=== PATIENT | female | born 1930 | race Caucasian/White ===

== ENCOUNTER 2019-02-03 03:13 | Inpatient (IN) | payer OTHER, MEDICAID ==
[~2019-02-03] VITALS: Ht 142.2 cm; Wt 66.7 kg
[2019-02-03 03:15] VITALS: BP 165/65
[2019-02-03] MEDS ORDERED: FEVERALL650 M1 RECTAL (03:30)
[2019-02-03] MEDS ORDERED: MILK OF MA400 MG/5 M PO (03:30)
[2019-02-03] MEDS ORDERED: ASPIRIN81 M2 PO (03:31)
[2019-02-03] MEDS ORDERED: ALENDRONATE SOD70 MG PO (03:31)
[2019-02-03] MEDS ORDERED: LIPITOR40 MG PO (03:31)
[2019-02-03] MEDS ORDERED: ARICEPT 5 MG TAB5 MG PO (03:32)
[2019-02-03] MEDS ORDERED: ERGOCALCIF50000 UNIT PO (03:32)
[2019-02-03] MEDS ORDERED: COLACE100 MG PO (03:32)
[2019-02-03] MEDS ORDERED: LORAZEPAM 22 MG/1 ML IV PUSH (03:33)
[2019-02-03 03:34] LABS: BE 1.3 mmol/L (-2 to +3); PCO2 46.3 mmHg (35.0-45.0); PO2 110.9 mmHg (75.0-100.0)
[2019-02-03] MEDS ORDERED: LORAZEPAM 22 MG/1 ML PO (03:34)
[2019-02-03] MEDS ORDERED: TOPROL XL25 MG PO (03:34)
[2019-02-03] MEDS ORDERED: XARELTO20 MG PO (03:35)
[2019-02-03] MEDS ORDERED: REMERON15 MG PO (03:35)
[2019-02-03] MEDS ORDERED: TIMOLOL MA0.25 %/52 OPHTHALMIC (03:37)
[2019-02-03] MEDS ORDERED: TRAVATAN Z2.5 ML OPHTHALMIC (03:38)
[2019-02-03] MEDS ORDERED: TYLENOL WITH CO1 TA1 PO (03:41)
[2019-02-03] MEDS ORDERED: IPRAT-ALBUT 0.5-3 ML INH (03:43)
[2019-02-03 03:50] LABS: ABSOLUTE LYMPHOCYTES 0.8 thou/uL (0.8-5.3); ABSOLUTE MONOCYTES 0.5 thou/uL (0.0-1.2); ABSOLUTE NEUTROPHILS 7.2 thou/uL (1.6-8.1); BASOPHILS 0.2 %; EOSINOPHILS 0.3 %; HEMOGLOBIN 10.1 gm/dL (12.0-15.0); LYMPHOCYTES 9.4 %; MCH 30.2 pg (26.0-34.0); MCHC 32.7 g/dL (28.0-37.0); MCV 92.5 fL (80.0-100.0); MONOCYTES 5.7 %; NUCLEATED RBCS 0 /100WBC; PLATELET COUNT* 422 thou/uL (150-400); POLYS 84.4 %; RBC 3.35 mil/uL (4.20-5.00); WBC 8.6 thou/uL (4.0-11.0)
[2019-02-03 04:01] LABS: ANION GAP 6 mmol/L (7-16); BUN 15 mg/dL (7-18); CALCIUM 8.6 mg/dL (8.5-10.1); CHLORIDE 103 mmol/L (98-107); CO2 31 mmol/L (21-32); GLUCOSE 130 mg/dL (70-99); POTASSIUM 4.1 mmol/L (3.5-5.1); SODIUM 140 mmol/L (136-145)
[2019-02-03 04:06] LABS: APTT 32.9 Seconds (25.0-31.3); INR 1.5; PROTIME 15.4 Seconds (9.20-11.50)
[2019-02-03 04:14] LABS: ALBUMIN 3.1 g/dL (3.4-5.0); ALKALINE PHOSPHATASE 185 U/L (46-116); NT-PRO BRAIN NAT PEPTIDE 7484 pg/mL (<300); SGOT 19 U/L (15-37); SGPT 19 U/L (30-65); TOTAL BILIRUBIN 0.8 mg/dL (<0.1-1.0); TOTAL PROTEIN 6.2 g/dL (6.4-8.2); TROPONIN-I LEVEL <0.06 ng/mL (<0.06)
--- NOTE | 2019-02-03 05:05 | NUR ---
PT PERICARE PROVIDED, REPOSITIONED AND WARM BLANKETS APPLIED; MONITOR TRACING SR WITH PVC; PT REPOSITIONED; CALL LIGHT WITHIN REACH WILL CONTINUE TO MONITOR
--- NOTE | 2019-02-03 08:43 | NUR ---
PT SON WHO IS PT'S DPOA CALLED AND REPORTS PT IS A DNR AND HE DOES NOT WANT PT TO BE A FULL CODE. HE WILL BRING COPY OF ADVANCED DIRECTIVE TO HOSPITAL WHEN HE COMES BACK.
[2019-02-03 09:20] VITALS: BP 114/41
[2019-02-03 09:55] VITALS: BP 140/53
--- NOTE | 2019-02-03 10:42 | EKG ---
[place] [address] ELECTROCARDIOGRAM REPORT Name: MARÍA HAND Room: [address] ADM IN .R.#: [id number] Admission: 02/03/19 Attend Phys: Danis Gupta MD Discharge: Date of : [birth year] Report #: [id number] THIS REPORT FOR: //name// [facility] ED Test Date: 2019-02-03 Test Time: 03:17:00 Pat Name: MARÍA HAND Department: Room: [facility] Gender: F Relay Tester Helper: DAR : 1930 Requested By: Bear Pro Order Number: [id number] MD: Chemo Sears Measurements Intervals [place] Rate: 88 P: 9 RI: 169 QRS: 22 QRSD: 97 T: -3 QT: 397 QTc: 481 Interpretive Statements Sinus rhythm early transition Multiple premature complexes supravenricular Low voltage, precordial leads Borderline T abnormalities, diffuse leads No previous ECG available for comparison Electronically Signed On 02-03-2019 10:42:23 CDT by Chemo Sears [email or web address] <ELECTRONICALLY SIGNED> By: Chemo Sears MD, FACC 02/03/19 1042 0317 0317 Chemo Sears MD, FACC /EPI
--- NOTE | 2019-02-03 13:01 | NUR ---
RECEVIED REPORT FROM ZACK IN ER. PT TRANSFERRED TO TELE AROUND 929, ASSUMED CARE. PT LOGAN, OREINTED TO SELF ONLY. ASPHALT PAVING SUPERINTENDENT PLACED TRACING SR. ADMISION ASSESSMENT, HISTORY AND EDUCATION COMPLETED CHARTED. IV TO LEFT AC INTACT. MEDS PER EMAR. PT OREINTED TO ROOM, BED AND CALL LIGHT; PT COMMUNICATES UNDERSTANDING. DPOA SON AT BEDSIDE, UPDATED ON POC. MOREAU IN PLACE TO DD. PT NPO FOR THORACENTESIS TODAY. PT BEING TURNED Q2HRS. CALL LIGHT IS WITHIN REACH. HOURLY ROUNDING PERFORMED. REPORT GIVEN TO SUSIE CUEVAS.
--- NOTE | 2019-02-03 13:32 | 2DMMODE ---
[place] [address] 2 D/M-MODE ECHOCARDIOGRAM Name: YAZANMARJORIEE Room: [address] IN [facility]#: [id number] Admission: 02/03/19 Attend Phys: Danis Gupta, Discharge: Date of : [birth year] Date of Service: 02/03/19 1331 Report #: [id number] THIS REPORT FOR: //name// APPROVED REPORT Study performed: 02/03/2019 11:35:05 EXAM: Comprehensive 2D, Doppler, and color-flow Echocardiogram Patient Location: In-Patient Room #: 230 Status: routine BSA: 1.70 HR: 89 bpm BP: 111/43 mmHg Rhythm: NSR Other Information Study Quality: Good Indications Congestive Heart Failure Dyspnea 2D Dimensions IVSd: 10.57 (7-11mm) LVOT Diam: 18.50 (18-24mm) LVDd: 45.64 mm PWd: 10.60 (7-11mm) Ascending Ao: 33.68 (22-36mm) LVDs: 29.67 (25-40mm) Aortic Root: 30.47 mm Volumes Left Atrial Volume (Systole) LA ESV Index: 37.70 mL/m2 Aortic Valve AoV Peak Vernon.: 3.25 m/s AO Peak Gr.: 42.28 mmHg LVOT Max P.38 mmHg AO Mean Gr.: 22.85 mmHg LVOT Mean P.16 mmHg LVOT Max V: 1.26 m/s AO V2 VTI: 63.15 cm LVOT Mean V: 0.82 m/s PEPPER (VTI): 1.21 cm2 LVOT V1 VTI: 28.51 cm Mitral Valve E/A Ratio: 1.18 MV Decel. Time: 145.04 [place] [address] 2 D/M-MODE ECHOCARDIOGRAM Name: MARÍA HAND Room: [address] IN ..#: [id number] Admission: 02/03/19 Attend Phys: Danis Gupta, Discharge: Date of : [birth year] Date of Service: 02/03/19 1331 Report #: [id number] MV E Max Vernon.: 1.07 m/s MV PHT: 42.06 ms MVA (PHT): 5.23 cm2 TDI E/Lateral E': 8.92 E/Medial E': 8.92 Medial E' Vernon.: 0.12 m/s Lateral E' Vernon.: 0.12 m/s Pulmonary Valve PV Peak Vernon.: 0.98 m/s PV Peak Gr.: 3.82 mmHg Tricuspid Valve RAP Estimate: 5.00 mmHg TR Peak Gr.: 54.38 mmHg RVSP: 59.00 mmHg PA Pressure: 59.00 mmHg Left Ventricle The left ventricle is normal size. There is normal LV segmental wall motion. There is normal left ventricular wall thickness. Left ventricular systolic function is normal. The left ventricular ejection fraction is within the normal range. LVEF is 65-70%. The left ventricular diastolic function is normal. Right Ventricle The right ventricle is normal size. The right ventricular systolic function is normal. Atria Left atrium is moderately dilated. Right atrium is mildly dilated. Aortic Valve Aortic valve leaflets are moderately thickened. No aortic regurgitation is present. Moderate aortic stenosis. Mitral Valve There is mitral annular calcification. Trace mitral regurgitation. No evidence of mitral valve stenosis. Tricuspid Valve The tricuspid valve is normal in structure. Mild tricuspid regurgitation. estimated pa pressure 65 mm Hg Pulmonic Valve The pulmonary valve is normal in structure. [place] [address] 2 D/M-MODE ECHOCARDIOGRAM Name: MARÍA HAND Room: [address]#: [id number] Admission: 02/03/19 Attend Phys: Danis Gupta, Discharge: Date of : [birth year] Date of Service: 02/03/19 1331 Report #: [id number] valvular regurgitation. Great Vessels The aortic root is normal in size. IVC is normal in size and collapses >50% with inspiration. Pericardium There is no pericardial effusion. <Conclusion> LVEF is 65-70%. Left atrium is moderately dilated. Moderate aortic stenosis. Mild tricuspid regurgitation. estimated pa pressure 65 mm Hg <ELECTRONICALLY SIGNED> By: Chemo Sears MD, FACC 02/03/191330 30 30 Chemo Sears MD, FACC /INF
[2019-02-03 14:13] LABS: BF RBC <1000 /mm3
[2019-02-03 14:28] LABS: TOTAL CELL COUNT 415 /mm3
[2019-02-03 14:38] LABS: BF LYMPHOCYTES 75 %; BF MONOCYTES 2 %; BF POLYS 23 %; BF TISSUE 15 /100 WBC
[2019-02-03 14:41] LABS: CLARITY HAZY; TOTAL VOLUME 350 ml
[2019-02-03 14:42] LABS: BF OTHER TISSUE CELLS; SOURCE THORACENTESIS
[2019-02-03 16:07] VITALS: BP 131/44
--- NOTE | 2019-02-03 18:00 | NUR ---
I HAVE REVIEWED AND AGREE WITH THE ADMISSION HX AND ASSESMENT CHARTING OF CHANI CUEVAS .
[2019-02-03 20:00] VITALS: BP 140/61
--- NOTE | 2019-02-03 20:02 | NUR ---
ASSUMED PT CARE AT 1300, RECEIVED REPORT FROM CHANI CUEVAS. PT WAS TAKEN TO THORACENTESIS AT APPROX 1330, HAD 4L REMOVED WITH DRESSING TO RIGHT UPPER BACK C/D/I ON RETURN. PT ON 10L HIGH FLOW NC WHILE AWAKE, ON VENTI MASK 50% WHILE ASLEEP. PT TOLERATING WELL. PT ORIENTED TO SELF. PLEASANT, FORGETFUL, KENAITZE. PT HAS DRESSING TO RIGHT HIP INTACT FROM PREVIOUS HIP SURGERY, RIGHT LEG HAS SMALL AMOUNT OF BRUISING BEHING KNEE. PT HAS DRESSING IN PLACE ON BACK FROM HI, REMOVED PT HAS A PRESSURE ULCER MEASURING 2.3X2.6 WITH 50% SLOUGH MATERIAL TO MIDDLE OF THE WOUND. IT WAS CLEANSED WITH WOUND CLEANSER AND MEPALEX DRESSING APPLIED. PT TOLERATED IT WELL. PT TURNED Q 2 HRS. MORE ALERT THIS EVENING. MOREAU IN PLACE D TO D. FALL PRECAUTIONS IN PLACE. CALL LIGHT IN REACH, REPORT GIVEN TO LAURIE CUEVAS .
[2019-02-03 22:05] LABS: SOURCE THORACENTESIS
[2019-02-03 22:06] LABS: SOURCE THORACENTESIS
[2019-02-03 23:40] VITALS: BP 117/66
--- NOTE | 2019-02-04 03:13 | NUR ---
ASSUMED PT CARE AT APPROX 1930. PT IS AWAKE, ORIENTED TO SELF AND PLACE. VSS ON 10L OF O2/HFC. NO DESATURATIONS NOTED. SPORTS ANCHOR IN PLACE TRACING SR. ASSESSMENT DONE AND CHARTED. POSITION CHANGES DONE. CALL LIGHT WITHIN REACH. HOURLY ROUNDING DONE FOR SAFETY.
[2019-02-04 04:00] VITALS: BP 118/49
[2019-02-04 04:54] LABS: ABSOLUTE LYMPHOCYTES 0.7 thou/uL (0.8-5.3); ABSOLUTE MONOCYTES 0.7 thou/uL (0.0-1.2); ABSOLUTE NEUTROPHILS 4.5 thou/uL (1.6-8.1); BASOPHILS 0.1 %; HEMATOCRIT 27.3 % (37.0-47.0); HEMOGLOBIN 8.9 gm/dL (12.0-15.0); LYMPHOCYTES 11.3 %; MCH 29.9 pg (26.0-34.0); MCHC 32.7 g/dL (28.0-37.0); MCV 91.7 fL (80.0-100.0); MPV 9.4 fl. (7.2-11.1); NUCLEATED RBCS 0 /100WBC; PLATELET COUNT* 370 thou/uL (150-400); POLYS 76.6 %; RBC 2.98 mil/uL (4.20-5.00); RDW-CV 15.9 % (10.5-14.5); WBC 5.9 thou/uL (4.0-11.0)
[2019-02-04 05:13] LABS: CREATININE 1.1 mg/dL (0.6-1.3); MAGNESIUM 2.1 mg/dL (1.8-2.4); POTASSIUM 3.4 mmol/L (3.5-5.1)
[2019-02-04 08:00] VITALS: BP 117/92
[2019-02-04 11:30] VITALS: BP 140/52
--- NOTE | 2019-02-04 16:54 | NUR ---
ASSUSSMED CARE OF PT APPROX 0730. REASSESSMENT COMPLETED CHARTED. MEICATIONS GIVEN CHARTED. PT USED BEDPAN THIS AM. PTS SON AT [place]ISDE THIS AM DISCUSSED CARE WITH PT AND SON. VERBALIZED UNDERSTANDONG. PT WORKED WITH THERAPY. PT ON 8L O2 NC MAINTAINING SAT. CALL LIGHT WITHIN REACHIN. SAFTEY PRECAUTIONS IN PLACE. HOURLY ROUNDING FOR SAFTEY.
[2019-02-04 18:08] VITALS: BP 113/40
[2019-02-04 22:00] VITALS: BP 126/34
[2019-02-05] VITALS (7 sets, daily range): BP systolic 116–168; BP diastolic 36–60
--- NOTE | 2019-02-05 06:43 | NUR ---
PATIENT HAS SLEPT WELL THROUGHOUT MOST OF THE NIGHT. VSS ON 3L 02 VIA NASAL CANNULA. SINUS RHYTHM ON MONITOR. PATIENT IS UP WITH ASSIST X 1 WITH [facility] AND [facility] TO [facility] AND IS 50% WEIGHT BEARING ON RIGHT LOWER EXTREMITY. MOREAU TO DEPENDENT DRAINAGE WITH YELLOW URINE OUTPUT. IV IN LEFT AC-SL. FALL PRECAUTIONS IN PLACE AND HOURLY ROUNDS MADE. WILL CONTINUE WITH PLAN OF CARE AND NURSING TO MONITOR.
--- NOTE | 2019-02-05 08:07 | CON ---
[address] [address] CONSULTATION Name: YAZANMARÍA Room: [address] ADM IN M.R.#: [id number] Admission: 02/03/19 Attend Phys: Danis Gupta MD Discharge: Date of : [birth year] Report #: [id number] THIS REPORT FOR: //name// CC: Danis Mosley Cyndy DATE OF SERVICE: 02/03/2019 REQUESTING PHYSICIAN: Danis Gupta MD REASON FOR CONSULTATION: Acute respiratory failure, hypoxemia. DISCUSSION: The patient is an 88-year-old woman who is currently at [facility]. She is there on the skilled unit following repair of a hip fracture several weeks ago. That was done at the hospital in [place]. According to her son, she had been doing relatively well, making great strides with her therapy. However, she was found very short of breath with low O2 saturations, was placed on a nonrebreather and EMS transported her to the ED very early this morning. She was transported on a CPAP en route. She was seen in the Emergency Department. Did have a chest x-ray done, which showed cardiomegaly as well as pleural effusions left greater than right. It was followed up with CT angiogram done of her chest. Changes of a prior median sternotomy. Did have bilateral pleural effusions with associated atelectatic changes seen. No pulmonary emboli were noted, but there was some degradation of the images due to movement and was transitioned over to high-flow nasal cannula. She is now on the floor. Given the findings of the pleural effusions, IR has been asked to tap her later today. There are no old records available on her at [facility]. I was able to access some outside records. She is a lifelong nonsmoker. She has no prior history of known pulmonary disease. She does have a history of coronary artery disease and had coronary artery bypass grafting surgery in the year 1999. It was done in [place]. She is now living up in the [place] area. She sees Dr. Sahil Luna. She also follows with Dr. Andrea Phillips. She did have an echocardiogram in August of this year. Per report, systolic function was normal with an EF of 70-75%. Did have LVH. RV was okay. Did have moderate aortic stenosis and mild elevation of her PA pressures to around 55 mmHg. Same month, she did have a CT scan done of her chest. It showed subcutaneous edema. She had a very small left pleural effusion noted at that time with some changes of bibasilar atelectasis. Had marked kyphosis noted as well. In August, venous Dopplers of her lower extremities were negative for DVT. However, she did have extensive DVT noted in the left arm. This included the left IJ, subclavian and axillary veins. Ventilation/perfusion lung scan at that time was low probability. She has been on Xarelto since that time. She also has a history of hip fracture. She fell last month and Dr. Galarza operated on her in [place], then [place] [address] CONSULTATION Name: YAZANMARÍA Ordaz Room: [address] IN M.R.#: [id number] Admission: 02/03/19 Attend Phys: Danis Gupta MD Discharge: Date of : [birth year] Report #: [id number] PAST MEDICAL HISTORY: Besides the coronary artery disease and DVT, was remarkable for cholecystectomy some years ago, spinal fusion surgeries done x 2, glaucoma, hypertension with dyslipidemia, decreased hearing. SOCIAL HISTORY: She is a . She has been primarily a homemaker. Her was a smoker, so she did have secondhand smoke exposure. FAMILY HISTORY: Negative for heart disease. Did have some coronary disease in the family. Did have a daughter that was murdered. REVIEW OF SYSTEMS: Unable to obtain well from the patient, but I was able to get from her as well as her son. She has not had any issues with coughing or choking with p.o. intake. They are not aware of any recent fevers. She does deny chest pain or palpitations. Has had pain in her hip that has been steadily improving. Does have ongoing issues with dementia, which is relatively mild. She does see Dr. Allen in [facility] for that. She is on medications. Her son does believe that that has helped. PHYSICAL EXAMINATION: GENERAL APPEARANCE: She is seen lying in her bed. She is quite hard of hearing. Currently, does not have her hearing aids in. Her son is present at the bedside. HEENT: Head is normocephalic and atraumatic. Sclerae nonicteric. Mucous membranes are moist. She is missing a few teeth. NECK: Negative for adenopathy. No JVD is appreciated. No supraclavicular adenopathy. HEART: Regular. No S3 is heard. LUNGS: Reveal really minimal crackles. Some mild decreased breath sounds in the bases bilaterally. ABDOMEN: Mildly obese, but soft without definite hepatosplenomegaly noted. EXTREMITIES: She has no clubbing. Radial pulses are present. Lower extremities are negative for any significant edema. Does have a scar present over her left lower leg. SKIN: Warm and dry. Pulses are present, but slightly diminished. NEUROLOGIC: She is alert, appears oriented. Moving all extremities well. LABORATORY AND X-RAY FINDINGS: Chest x-ray shows cardiomegaly. Does have pulmonary vascular congestion. Appears to have at least a moderate pleural effusion noted on the chest x-ray. On her CT angiogram, cardiomegaly. [id number] pleural effusions. Does appear the left is greater than the right. Some associated passive atelectasis from the effusions noted. Changes of prior median sternotomy. Arterial blood gases done earlier this morning, she had a pH of 7.38, pCO2 of 46, pO2 of 110, bicarbonate of 27 with a saturation of 97%, that was on 8 liters per nasal cannula. White blood cell count 8600; hemoglobin 10.1; hematocrit of 31; platelets 422,000. BUN is 15, creatinine of 1.0, alkaline phosphatase 185, ALT is only 19. ProBNP 7484 and her albumin was [facility] [address] [place] [address] CONSULTATION Name: MARÍA HAND Room: [address] IN [facility]#: [id number] Admission: 02/03/19 Attend Phys: Danis Gupta MD Discharge: Date of : [birth year] Report #: [id number] 3.1 with a total protein of 6.2. IMPRESSION: 1. Acute hypoxic respiratory failure. Increasing pulmonary vascular congestion and pleural effusions. May have developed some systolic dysfunction relative to her last echocardiogram. Could also be diastolic dysfunction as well. 2. Bilateral pleural effusions. 3. Known coronary artery disease. Did have preserved systolic function, echo done in August. Did have moderate aortic stenosis. 4. History of left upper extremity deep vein thrombosis. She has been on Xarelto. 5. History of dementia. 6. Recent hip fracture with repair. 7. Decreased hearing. RECOMMENDATIONS: 1. Agree with thoracentesis as able. It will certainly help with her shortness of breath and hopefully, her O2 needs as well. 2. IS. 3. We will also start some neb treatments while awake. 3. Can continue with antibiotics at this time. Deescalate depending on followup imaging and fevers, etc. 4. I discussed in detail with her son as well at the bedside. She is DNR, is not to be resuscitated. She does seem quite realistic in regard to her condition and problems. <ELECTRONICALLY SIGNED> By: Julianne Lamas MD 02/05/19 0807 1247 [id number] Lamas MD /nt
[2019-02-05 14:30] LABS: ABSOLUTE EOSINOPHILS 0.1 thou/uL (0.0-0.7); ABSOLUTE LYMPHOCYTES 0.9 thou/uL (0.8-5.3); ABSOLUTE MONOCYTES 0.7 thou/uL (0.0-1.2); ABSOLUTE NEUTROPHILS 4.9 thou/uL (1.6-8.1); BASOPHILS 0.5 %; EOSINOPHILS 1.9 %; HEMATOCRIT 29.4 % (37.0-47.0); HEMOGLOBIN 9.7 gm/dL (12.0-15.0); LYMPHOCYTES 13.9 %; MCH 30.3 pg (26.0-34.0); MCHC 33.1 g/dL (28.0-37.0); MCV 91.5 fL (80.0-100.0); MONOCYTES 10.5 %; MPV 8.9 fl. (7.2-11.1); NUCLEATED RBCS 0 /100WBC; PLATELET COUNT* 384 thou/uL (150-400); POLYS 73.2 %; RBC 3.21 mil/uL (4.20-5.00); RDW-CV 15.5 % (10.5-14.5); WBC 6.7 thou/uL (4.0-11.0)
[2019-02-05 14:37] LABS: ALBUMIN 2.8 g/dL (3.4-5.0); CREATININE 1.2 mg/dL (0.6-1.3); TOTAL BILIRUBIN 0.6 mg/dL (<0.1-1.0); TOTAL PROTEIN 5.7 g/dL (6.4-8.2)
[2019-02-05 14:38] LABS: POTASSIUM 2.8 mmol/L (3.5-5.1)
--- NOTE | 2019-02-05 18:38 | NUR ---
ASSUSSMED CARE OF PT APPROX 0730. REASSESMENT COMPLETED CHARTED. MEDICATIONS GIVEN CHARTED. PT IS ALERT AND ORIENTED TO SELF AND TIME. WOUND PICTURE TAKEN AT 1700, WOUND MEASUREMENTS ARE 3 1/2CM LX3CM W. WOUND CLEANSED AND PATTED DRY, NEW DRESSING IN PLACE. PT TOLERATED WELL. PT UP TO BEDSIDE CHAIR FOR MOST OF THIS SHIFT. HOURLY ROUNDING FOR PT SAFTEY. SAFTEY PRECAUTIONS IN PLACE. CALL LIGHT WITHIN REACH.
[2019-02-06 04:08] VITALS: BP 146/51
[2019-02-06 04:27] LABS: ABSOLUTE EOSINOPHILS 0.2 thou/uL (0.0-0.7); ABSOLUTE LYMPHOCYTES 0.9 thou/uL (0.8-5.3); ABSOLUTE MONOCYTES 0.6 thou/uL (0.0-1.2); ABSOLUTE NEUTROPHILS 3.7 thou/uL (1.6-8.1); BASOPHILS 0.7 %; EOSINOPHILS 2.8 %; HEMATOCRIT 29.8 % (37.0-47.0); HEMOGLOBIN 9.6 gm/dL (12.0-15.0); LYMPHOCYTES 17.3 %; MCH 29.6 pg (26.0-34.0); MCHC 32.2 g/dL (28.0-37.0); MCV 91.9 fL (80.0-100.0); MONOCYTES 11.4 %; MPV 9.1 fl. (7.2-11.1); NUCLEATED RBCS 0 /100WBC; PLATELET COUNT* 364 thou/uL (150-400); POLYS 67.8 %; RBC 3.24 mil/uL (4.20-5.00); RDW-CV 15.6 % (10.5-14.5); WBC 5.4 thou/uL (4.0-11.0)
--- NOTE | 2019-02-06 04:30 | NUR ---
ASSUMED PATIENT CARE AT 1900. PATIENT ALERT AND ORIENTED TIMES TWO. CONFUSED TO WHY SHE IS HERE. NO COMPLAINTS OF PAIN OR DISCOMFORT NOTED. MOREAU IN PLACE. COMPUTER DRAFTER AND HOURLY ROUDING COMPLETED CHARTED.
[2019-02-06 04:31] LABS: CALCIUM 7.7 mg/dL (8.5-10.1); CREATININE 1.1 mg/dL (0.6-1.3); POTASSIUM 3.7 mmol/L (3.5-5.1)
[2019-02-06 08:00] VITALS: BP 136/60
[2019-02-06 11:30] VITALS: BP 138/78
--- NOTE | 2019-02-06 12:54 | NUR ---
WOUND CARE NOTE: CONSULT RECEIVED FOR UNSTAGEABLE PU MID BACK. PATIENT PRESENTS WITH AN UNSTAGEABLE PRESSURE ULCER TO HER THORACIC SPINE. WOUND MEASURES 2.5X2.6X0.1. MOIST, YELLOW, ADHERENT SLOUGH TISSUE NOTED TO WOUND BED. RINKU-WOUND WITH FLAKING SKIN. CLEANSED AREA WITH WOUND CLEANSER, PATTED DRY. OPTIFOAM AG WAS APPLIED. PATIENT WITH KYPHOSIS AND PROMINENT THORACIC SPINE. EDUCATED PATIENT ON FINDINGS, COMMUNICATED UNDERSTANDING. RECOMMEND TURN Q2 HOURS ENCOURAGE GOOD NUTRTION/HYDRATION WAFFLE CUSHION TO BACK OF CHAIR ENCOURAGE PATIENT TO SIT UPRIGHT WITH PRESSURE OFF BACK
--- NOTE | 2019-02-06 13:03 | NUR ---
Nutrition: consult for wound, not evaled by wound RN yet. Wt down from admit with lasix. Pt reports 137 lb close to UBW. Reported decreased appetite with acute illness. Denied trouble chewing or swallowing. Was eating pudding from lunch tray at visit, had not eaten main meal, stated it looked good but she was not hungry. Pt did not think she needed a supplement but agreed to Ensure daily after explaining that adequate nutrition is needed for healing. Albumin 2.8. Assess at mild nutrition risk. F/u 02/10/19.
--- NOTE | 2019-02-06 14:53 | NUR ---
MET WITH PT'S SON/ALLY. PT WAS ADMITTED FROM SNF AT [facility], PLAN IS FOR HER TO RETURN THERE AT [place]. CALLED AND FAXED UPDATE TO [facility]. PT HAS BEEN THERE AFTER HIP FX, WAS TO F/U WITH HER ORTHO/DR BARKSDALE AT [place] TODAY AND BE EVAL'D TO HAVE WT BEARING STATUS UPGRADED. SON CALLED THAT OFFICE TO NOTIFY PT IN HOSPITAL. CM TO FOLLOW DR BARKSDALE [phone]
[2019-02-06 16:00] VITALS: BP 127/52
--- NOTE | 2019-02-06 18:40 | NUR ---
ASSUMED PT CARE AT 0730, FULL ASSESMENT DONE CHARTED. PT A/O X2, FORGETFUL AND PLEASANTLY CONFUSED AT TIMES. PTS MOREAU REMOVED TODAY, PT INCONT OF B/B SEVERAL TIMES THIS AFTERNOON. PT CAPITAN GRANDE BAND, VSS, SR ON THE MONITOR. WAS ON RA THIS AM, PLACED BACK ON 2L THIS AFTERNOON, PT BECAME SOA AND SAT 88%. PT RECOVERED WELL ON 2L. PT UP WITH 1 ASSIST/WALKER/GAIT BELT. CANNONT TOLERATE WALKING VERY FAR. PT C/O SOME PAIN IN RIGHT HIP THIS AFTERNOON, MEDS GIVEN PER JUL. SON UPDATED ON PLAN OF CARE. FALL PRECAUTIONS IN PLACE. WILL CONTINUE WITH PLAN OF CARE.
[2019-02-06 20:31] VITALS: BP 124/44
[2019-02-07 00:07] VITALS: BP 123/36
[2019-02-07 04:43] VITALS: BP 112/88
--- NOTE | 2019-02-07 05:21 | NUR ---
ASSUMED PATIENT CARE AT 1900. PATIENT ALERT AND ORIENTED TIMES 2. NO COMPLAINTS OF PAIN OR DISCOMFORT NOTED. TURNED Q2. CHUTE GREASER AND HOURLY ROUNDING COMPLETED DOCUMENTED. ACCOUNTS ADMINISTRATOR IN PLACE, TRACING NSR.
[2019-02-07 07:45] VITALS: BP 141/55
[2019-02-07] MEDS ORDERED: CEFDINIR300 MG PO (11:15)
[2019-02-07] MEDS ORDERED: ATIVAN1 M1 PO (11:15)
[2019-02-07 12:00] VITALS: BP 140/71
--- NOTE | 2019-02-07 12:00 | NUR ---
ORDERS NOTED FOR DC TO SNF, PT TO RETURN TO [facility] MET WITH SON/ALLY WHO IS DPOA, IN AGREEMENT WITH PLAN. CALLED AND FAXED ORDERS TO [facility], SHE ARRANGED W/C VAN FOR 2PM. CHART COPIED. RN HAS NUMBER TO CALL REPORT
--- NOTE | 2019-02-07 12:06 | PATH ---
[address] [address] PATHOLOGY RPT PROCEDURE Name: MARÍA HAND Room: [address] IN [facility].#: [id number] Admission: 02/03/19 Date of : [birth year] Discharge: Report #: [id number] Path Case #: [id number] Note [facility] Accession Number: [id number] TESTS RESULT FLAG UNITS REF RANGE LAB Clinician Provided Cytology Information No. of containers..01 Other (Miscellaneous) Source: RT PLEURAL FLUID DIAGNOSIS: RT PLEURAL FLUID NEGATIVE FOR MALIGNANT CELLS. MESOTHELIAL CELLS AND FEW INFLAMMATORY CELLS. Signed out by: Ben Page MD, Pathologist NPI- [id number] Performed by: Raquel Ontiveros, Family Development Specialist ([facility]) Gross description: 01 70 ML, YELLOW, CLEAR /LCS 05/02/1840 0000 Local FLAG LEGEND: L-Low Normal,H-High Normal,LL-Alert Low,HH-Alert High <-Panic Low,>-Panic High,A-Abnormal,AA-Critical Abnormal Performed at: [address] [place] [address] David Jarrett MD, [address] [place] [address] [place] [address] Ben Page MD, Specimen Comment: A courtesy copy of this report has been sent to Specimen Comment: [phone]. Specimen Comment: Report sent to Performed at: [address] [place] [address] [address], [place], [place] [id number] MD David Jarrett MD Phone: [phone]
[2019-02-10 10:14] LABS: BODY FLUID AMYLASE 12 U/L (()); BODY FLUID LDH 86 IU/L (()); BODY FLUID PH 7.5 (Not Estab.); BODY FLUID PROTEIN 1.9 g/dL (())
== END 2019-02-07 14:00 | DRG 177 ==
LOC: M.ERS 03:13 → M.TBA-ER 05:55 → M.2W 05:55 → M.TBA-ER 08:26 → M.2W 09:37
PROVIDERS: Family Medicine; Internal Medicine Pulmonary Disease; ADMIT Internal Medicine
PROC: 0W993ZZ Drainage of Right Pleural Cavity, Percutaneous Approach (ICD-10-PCS; principal; 2019-02-03)
DX: J69.0 Pneumonitis due to inhalation of food and vomit (principal); J96.01 Acute respiratory failure with hypoxia; I50.33 Acute on chronic diastolic (congestive) heart failure; G93.41 Metabolic encephalopathy; J91.8 Pleural effusion in other conditions classified elsewhere; I25.10 Atherosclerotic heart disease of native coronary artery without angina pectoris; F03.90 Unspecified dementia, unspecified severity, without behavioral disturbance, psychotic disturbance, mood disturbance, and anxiety; D64.9 Anemia, unspecified; I35.0 Nonrheumatic aortic (valve) stenosis; I27.20 Pulmonary hypertension, unspecified; D63.8 Anemia in other chronic diseases classified elsewhere; N18.3 Chronic kidney disease, stage 3 (moderate); E78.5 Hyperlipidemia, unspecified; F41.9 Anxiety disorder, unspecified; F32.9 Major depressive disorder, single episode, unspecified; Z79.2 Long term (current) use of antibiotics; Z79.1 Long term (current) use of non-steroidal anti-inflammatories (NSAID); Z86.718 Personal history of other venous thrombosis and embolism; Z79.01 Long term (current) use of anticoagulants; Z79.899 Other long term (current) drug therapy; Z23 Encounter for immunization

== ENCOUNTER → 2019-02-17 | Outpatient (CLI) | payer OTHER, MEDICAID ==
[~2019-02-17] MED LIST: ALENDRONATE SOD70 MG PO; ARICEPT 5 MG TAB5 MG PO; ASPIRIN81 M2 PO; ATIVAN1 M1 PO; CEFDINIR300 MG PO; COLACE100 MG PO; ERGOCALCIF50000 UNIT PO; FEVERALL650 M1 RECTAL; IPRAT-ALBUT 0.5-3 ML INH; LIPITOR40 MG PO; LORAZEPAM 22 MG/1 ML IV PUSH; LORAZEPAM 22 MG/1 ML PO; MILK OF MA400 MG/5 M PO; REMERON15 MG PO; TIMOLOL MA0.25 %/52 OPHTHALMIC; TOPROL XL25 MG PO; TRAVATAN Z2.5 ML OPHTHALMIC; TYLENOL WITH CO1 TA1 PO; XARELTO20 MG PO
== END ==
LOC: M.WC 09:00
DX: T81.89XA Other complications of procedures, not elsewhere classified, initial encounter (principal); L89.103 Pressure ulcer of unspecified part of back, stage 3; E78.5 Hyperlipidemia, unspecified; D64.9 Anemia, unspecified; I50.9 Heart failure, unspecified; I27.20 Pulmonary hypertension, unspecified; M40.294 Other kyphosis, thoracic region; M81.0 Age-related osteoporosis without current pathological fracture; F41.9 Anxiety disorder, unspecified; F32.9 Major depressive disorder, single episode, unspecified; F03.90 Unspecified dementia, unspecified severity, without behavioral disturbance, psychotic disturbance, mood disturbance, and anxiety; Y92.89 Other specified places as the place of occurrence of the external cause; Y83.8 Other surgical procedures as the cause of abnormal reaction of the patient, or of later complication, without mention of misadventure at the time of the procedure

== ENCOUNTER → 2019-02-24 | Outpatient (CLI) | payer OTHER, MEDICAID | LOC: M.WC 01:53 | DX: T81.89XD Other complications of procedures, not elsewhere classified, subsequent encounter (principal); L89.103 Pressure ulcer of unspecified part of back, stage 3; E78.5 Hyperlipidemia, unspecified; H40.9 Unspecified glaucoma; I27.20 Pulmonary hypertension, unspecified; I50.9 Heart failure, unspecified; M81.0 Age-related osteoporosis without current pathological fracture; M40.294 Other kyphosis, thoracic region; F03.90 Unspecified dementia, unspecified severity, without behavioral disturbance, psychotic disturbance, mood disturbance, and anxiety; F41.9 Anxiety disorder, unspecified; F32.9 Major depressive disorder, single episode, unspecified; Y83.8 Other surgical procedures as the cause of abnormal reaction of the patient, or of later complication, without mention of misadventure at the time of the procedure ==

== ENCOUNTER → 2019-03-03 | Outpatient (CLI) | payer OTHER, MEDICAID | LOC: M.WC 01:46 | DX: T81.89XD Other complications of procedures, not elsewhere classified, subsequent encounter (principal); L89.103 Pressure ulcer of unspecified part of back, stage 3; M40.294 Other kyphosis, thoracic region; M81.0 Age-related osteoporosis without current pathological fracture; E78.5 Hyperlipidemia, unspecified; H40.9 Unspecified glaucoma; I27.20 Pulmonary hypertension, unspecified; I50.9 Heart failure, unspecified; F03.90 Unspecified dementia, unspecified severity, without behavioral disturbance, psychotic disturbance, mood disturbance, and anxiety; F41.9 Anxiety disorder, unspecified; F32.9 Major depressive disorder, single episode, unspecified; Y83.8 Other surgical procedures as the cause of abnormal reaction of the patient, or of later complication, without mention of misadventure at the time of the procedure ==

== ENCOUNTER → 2019-03-09 | Outpatient (CLI) | payer OTHER, MEDICAID | LOC: M.WC 05:37 | DX: T81.89XD Other complications of procedures, not elsewhere classified, subsequent encounter (principal); L89.103 Pressure ulcer of unspecified part of back, stage 3; M40.294 Other kyphosis, thoracic region; E78.5 Hyperlipidemia, unspecified; I50.9 Heart failure, unspecified; I27.20 Pulmonary hypertension, unspecified; M81.0 Age-related osteoporosis without current pathological fracture; F41.9 Anxiety disorder, unspecified; F32.9 Major depressive disorder, single episode, unspecified; F03.90 Unspecified dementia, unspecified severity, without behavioral disturbance, psychotic disturbance, mood disturbance, and anxiety; Y83.8 Other surgical procedures as the cause of abnormal reaction of the patient, or of later complication, without mention of misadventure at the time of the procedure ==

== ENCOUNTER → 2019-03-17 | Outpatient (CLI) | payer OTHER, MEDICAID | LOC: M.WC 03-16 10:00 | DX: T81.89XD Other complications of procedures, not elsewhere classified, subsequent encounter (principal); L89.103 Pressure ulcer of unspecified part of back, stage 3; M40.294 Other kyphosis, thoracic region; E78.5 Hyperlipidemia, unspecified; I50.9 Heart failure, unspecified; I27.20 Pulmonary hypertension, unspecified; H40.9 Unspecified glaucoma; M81.0 Age-related osteoporosis without current pathological fracture; F03.90 Unspecified dementia, unspecified severity, without behavioral disturbance, psychotic disturbance, mood disturbance, and anxiety; F41.9 Anxiety disorder, unspecified; F32.9 Major depressive disorder, single episode, unspecified; Y83.8 Other surgical procedures as the cause of abnormal reaction of the patient, or of later complication, without mention of misadventure at the time of the procedure ==

== ENCOUNTER → 2019-03-24 | Outpatient (CLI) | payer OTHER, MEDICAID | LOC: M.WC 05:13 | DX: T81.89XD Other complications of procedures, not elsewhere classified, subsequent encounter (principal); L89.103 Pressure ulcer of unspecified part of back, stage 3; M40.294 Other kyphosis, thoracic region; E78.5 Hyperlipidemia, unspecified; H40.9 Unspecified glaucoma; I27.20 Pulmonary hypertension, unspecified; I50.9 Heart failure, unspecified; M81.0 Age-related osteoporosis without current pathological fracture; F03.90 Unspecified dementia, unspecified severity, without behavioral disturbance, psychotic disturbance, mood disturbance, and anxiety; F41.9 Anxiety disorder, unspecified; F32.9 Major depressive disorder, single episode, unspecified; Y83.8 Other surgical procedures as the cause of abnormal reaction of the patient, or of later complication, without mention of misadventure at the time of the procedure ==